=== PATIENT | female | born 1930 | race Caucasian/White ===

== ENCOUNTER 2017-06-15 10:52 | Inpatient (IN) | payer OTHER ==
--- NOTE | 2017-06-15 11:06 | PDOC ---
History of Present Illness - General History Source: Patient Exam Limitations: No Limitations - History of Present Illness Initial Comments: 06/15/17 11:39 The patient is an 87 year old female from [facility] with a significant PMH of CHF, AFIB (on Eliquis), and muscle weakness who presents to the emergency department with 'cold-like symptoms' beginning approximately 3 days ago. The patient reports an occasional cough and feeling nauseous over the past 3 days, but reports being slightly less nauseous at presentation. The patient presents to the ED for evaluation of fever, as per the triage note. The patient denies chest pain, shortness of breath, headache and dizziness. Denies fever, chills, vomit, diarrhea and constipation. Denies dysuria, frequency, urgency and hematuria. Allergies: Cephalosporins, Erythromycin lactobionate, Penicillins, Septrin Past surgical history: None reported. Social history: No reported cigarette, alcohol, or drug use. PCP: Dr. Kisha Pierre <Usman Tinsley - Last Filed: 06/15/17 11:57> <Karen Mcintosh - Last Filed: 06/16/17 16:17> - General Stated Complaint: ELEVATED TEMP. Time Seen by Provider: 06/15/17 11:05 Past History <Usman Tinsley - Last Filed: 06/15/17 11:57> - Suicide/Smoking/Psychosocial Hx Smoking History: Unknown if ever smoked Have you smoked in the past 12 months: No Hx Alcohol Use: No Drug/Substance Use Hx: No <Karen Mcintosh - Last Filed: 06/16/17 16:17> - Past Medical History Allergies/Adverse Reactions: Allergies Allergy/AdvReac Type Severity Reaction Status Date / Time Cephalosporins Allergy Verified 06/15/17 11:20 erythromycin lactobionate Allergy Verified 06/15/17 11:20 [From Erythrocin] Penicillins Allergy Verified 06/15/17 11:20 shellfish derived Allergy Verified 06/15/17 11:20 Home Medications: Ambulatory Orders Apixaban [Eliquis] 5 mg PO BID 04/23/16 Cholecalciferol (Vitamin D3) [D3-50] 50,000 unit PO MONTHLY 04/23/16 Digoxin [Lanoxin -] 0.125 mg PO DAILY 04/23/16 Furosemide [Lasix -] 80 mg PO ASDIR 04/23/16 Metoprolol Tartrate 25 mg PO BID 04/23/16 Primidone [Mysoline] 250 mg PO DAILY 04/23/16 Spironolactone 25 mg PO DAILY 04/23/16 Valsartan 40 mg PO DAILY 04/23/16 Acetaminophen [Tylenol Extra Strength] 1,000 mg PO QID PRN 06/15/17 Furosemide [Lasix] 40 mg PO ASDIR 06/15/17 Melatonin 5 mg PO HS 06/15/17 Nystatin/Triamcin [Nystatin-Triamcinolone Cream] 0 gm TP TID PRN 06/15/17 Review of Systems - Review of Systems Able to Perform ROS?: Yes Comments:: 06/15/17 11:39 GENERAL/CONSTITUTIONAL: No fever or chills. No weakness. HEAD, EYES, EARS, NOSE AND THROAT: No change in vision. No ear pain or discharge. No sore throat. CARDIOVASCULAR: No chest pain or shortness of breath. RESPIRATORY: (+) Occasional cough. No wheezing, or hemoptysis. GASTROINTESTINAL: (+) Nausea. No vomiting, diarrhea or constipation. GENITOURINARY: No dysuria, frequency, or change in urination. MUSCULOSKELETAL: No joint or muscle swelling or pain. No neck or back pain. SKIN: No rash NEUROLOGIC: No headache, vertigo, loss of consciousness, or change in strength/ sensation. ENDOCRINE: No increased thirst. No abnormal weight change. HEMATOLOGIC/LYMPHATIC: No anemia, easy bleeding, or history of blood clots. ALLERGIC/IMMUNOLOGIC: No hives or skin allergy. <Usman Tinsley - Last Filed: 06/15/17 11:57> *Physical Exam - Vital Signs Last Vital Signs Temp Pulse Resp BP Pulse Ox 98.7 F 80 18 106/51 95 06/15/17 10:55 06/15/17 10:55 06/15/17 10:55 06/15/17 10:55 06/15/17 10:55 <Usman Tinsley - Last Filed: 06/15/17 11:57> - Physical Exam Comments: GENERAL: Awake, alert, and fully oriented, in no acute distress HEAD: No signs of trauma EYES: PERRLA, EOMI, sclera anicteric, conjunctiva clear ENT: Auricles normal inspection, hearing grossly normal, nares patent, oropharynx clear without exudates. Dry mucosa NECK: Normal ROM, supple, no lymphadenopathy, JVD, or masses LUNGS: Breath sounds equal, clear to auscultation bilaterally. No wheezes, and no crackles HEART: Regular rate and rhythm, normal S1 and S2, no murmurs, rubs or gallops ABDOMEN: Soft, nontender, normoactive bowel sounds. No guarding, no rebound. No masses EXTREMITIES: Normal range of motion, no edema. No clubbing or cyanosis. No cords, erythema, or tenderness NEUROLOGICAL: Cranial nerves II through XII grossly intact. Normal speech, normal gait SKIN: Warm, Dry, normal turgor, no rashes or lesions noted. <Karen Mcintosh - Last Filed: 06/16/17 16:17> ED Treatment Course - LABORATORY CBC & Chemistry Diagram: 06/16/17 06:10 06/16/17 06:10 <Karen Mcintosh - Last Filed: 06/16/17 16:17> Medical Decision Making - Medical Decision Making PT noted to have fever and tachycardia. Flu swab was negative, however, she was found to have UTI. Will admit for IV abx. <Karen Mcintosh - Last Filed: 06/16/17 16:17> *DC/Admit/Observation/Transfer - Attestations Scribe Attestion: 06/15/17 11:48 Documentation prepared by Usman Tinsley, acting as senior medical writer for Karen Mcintosh MD. <Usman Tinsley - Last Filed: 06/15/17 11:57> - Discharge Dispostion Admit: Yes <Karen Mcintosh - Last Filed: 06/16/17 16:17> Diagnosis at time of Disposition: Sepsis due to urinary tract infection UTI (urinary tract infection) Qualifiers: Urinary tract infection type: site unspecified Hematuria presence: without hematuria Qualified Code(s): N39.0 - Urinary tract infection, site not specified - Discharge Dispostion Condition at time of disposition: Stable
[2017-06-15 11:25] VITALS: BMI 26.4
[2017-06-15 12:20] LABS: MCH 31.9 pg (25.7-33.7); MEAN CELL VOLUME 96.5 fl (80-96); MEAN PLT VOLUME 9.2 fl (7.5-11.1); PLATELET COUNT 216 K/MM3 (134-434); RDW 13.4 % (11.6-15.6); WHITE BLOOD COUNT 21.7 K/mm3 (4.0-10.0)
[2017-06-15 12:45] LABS: ALBUMIN 2.9 g/dl (3.4-5.0); ANION GAP 8 (8-16); BILIRUBIN,TOTAL 0.9 mg/dL (0.2-1.0); CALCIUM 8.1 mg/dL (8.5-10.1); CO2 28 mmol/L (21-32); CREATININE 1.1 mg/dL (0.55-1.02); GLUCOSE,RANDOM 191 mg/dL (74-106); SGOT/AST 22 U/L (15-37); SGPT/ALT 35 U/L (12-78)
[2017-06-15 12:48] LABS: TOTAL CELLS COUNTED 100
[2017-06-15 12:49] LABS: PLATELET COMMENTS SLT PLT CLUMPING; PLATELET ESTIMATE ADEQUATE
[2017-06-15 12:57] LABS: ALK PHOS 88 U/L (45-117)
[2017-06-15 13:58] LABS: URINE APPEARANCE TURBID; URINE BILIRUBIN NEGATIVE (NEGATIVE); URINE BLOOD 3+ (NEGATIVE); URINE COLOR AMBER; URINE GLUCOSE (UA) NEGATIVE (NEGATIVE); URINE KETONE NEGATIVE (NEGATIVE); URINE NITRITE NEGATIVE (NEGATIVE); URINE UROBILINOGEN NEGATIVE mg/dL (0.2-1.0)
[2017-06-15 14:01] LABS: URINE PROTEIN 2+ (NEGATIVE)
[2017-06-15 14:02] LABS: URINE BACTERIA MANY /hpf (NONE SEEN); URINE HYALINE CAST 25 /lpf; URINE RBC 393 /hpf (0-3); URINE WBC 526 /hpf (3-5); YEAST MODERATE
[2017-06-15] MEDS ORDERED: LEVOFLOXACIN 750 MG IVPB 750 MG/150 ML BAG IVPB ONE ×2 (14:23→15:21)
[2017-06-15] MEDS ORDERED: ACETAMINOPHEN 500 MG TABLET (FP) PO PRN (15:28)
[2017-06-15] MEDS ORDERED: ACETAMINOPHEN 325 MG TABLET (FP) ONE (16:37)
[2017-06-15] MEDS: ACETAMINOPHEN 500 MG TABLET (FP) PO PRN (16:40)
[2017-06-15 19:38] LABS: URINE LEUK ESTERASE 1+ (NEGATIVE)
[2017-06-15] MEDS: METOPROLOL TARTRATE 50 MG TABLET (FP) PO SCH (22:23)
[2017-06-15] MEDS: APIXABAN 5 MG TABLET PO SCH (22:23)
[2017-06-15] MEDS: MELATONIN 5 MG TABLETS PO SCH (23:17)
[2017-06-16] MEDS: ACETAMINOPHEN 500 MG TABLET (FP) PO PRN ×2 (06:46→21:27)
--- NOTE | 2017-06-16 07:17 | HP ---
CHIEF COMPLAINT: Cold Symptoms, PCP: HISTORY OF PRESENT ILLNESS: This is a 87 y/o woman with a past medical history of CHF, Afib (on Eliquis), Muscle Weakness, Seizures. Who presents to the ED from [facility] on [address] with cold symptoms x 3 days. Patient reports having fever, chills, and "feeling foggy " 2 days ago. Patient also reports having fatigue and a productive cough with yellow phlegm. Patient denies SWIFT, SOB, CP, AP, N/V/D, constipation, dysuria. ER course was notable for: (1) Sepsis Criteria met: T Max 101.8, WBC 21.7, R-22, BUN 22 (2) UA: +3 leukocyte esterase, 526 WBC, yeast moderate (3) Recent Travel: None PAST MEDICAL HISTORY: See HPI PAST SURGICAL HISTORY: Social History: Smoking: Never Alcohol: None Drugs: None Resides in a assisted Family History: Non-contributory Allergies Cephalosporins Allergy (Verified 06/15/17 11:20) erythromycin lactobionate [From Erythrocin] Allergy (Verified 06/15/17 11:20) Penicillins Allergy (Verified 06/15/17 11:20) shellfish derived Allergy (Verified 06/15/17 11:20) HOME MEDICATIONS: Home Medications Medication Instructions Recorded Apixaban [Eliquis] 5 mg PO BID 04/23/16 Cholecalciferol (Vitamin D3) 50,000 unit PO MONTHLY 04/23/16 [D3-50] Digoxin [Lanoxin -] 0.125 mg PO DAILY 04/23/16 Furosemide [Lasix -] 80 mg PO ASDIR 04/23/16 Metoprolol Tartrate 25 mg PO BID 04/23/16 Primidone [Mysoline] 250 mg PO DAILY 04/23/16 Spironolactone 25 mg PO DAILY 04/23/16 Valsartan 40 mg PO DAILY 04/23/16 Acetaminophen [Tylenol Extra 1,000 mg PO QID PRN 06/15/17 Strength] Furosemide [Lasix] 40 mg PO ASDIR 06/15/17 Melatonin 5 mg PO HS 06/15/17 Nystatin/Triamcin 0 gm TP TID PRN 06/15/17 [Nystatin-Triamcinolone Cream] REVIEW OF SYSTEMS CONSTITUTIONAL: fever, chills, malaise Absent: diaphoresis, generalized weakness, loss of appetite, weight change HEENT: Absent: rhinorrhea, nasal congestion, throat pain, throat swelling, difficulty swallowing, mouth swelling, ear pain, eye pain, visual changes CARDIOVASCULAR: Absent: chest pain, syncope, palpitations, irregular heart rate, lightheadedness , peripheral edema RESPIRATORY: cough Absent: shortness of breath, dyspnea with exertion, orthopnea, wheezing, stridor , hemoptysis GASTROINTESTINAL: Absent: abdominal pain, abdominal distension, nausea, vomiting, diarrhea, constipation, melena, hematochezia GENITOURINARY: Absent: dysuria, frequency, urgency, hesitancy, hematuria, flank pain, genital pain MUSCULOSKELETAL: Absent: myalgia, arthralgia, joint swelling, back pain, neck pain SKIN: Absent: rash, itching, pallor HEMATOLOGIC/IMMUNOLOGIC: Absent: easy bleeding, easy bruising, lymphadenopathy, frequent infections ENDOCRINE: Absent: unexplained weight gain, unexplained weight loss, heat intolerance, cold intolerance NEUROLOGIC: Absent: headache, focal weakness or paresthesias, dizziness, unsteady gait, seizure, mental status changes, bladder or bowel incontinence PSYCHIATRIC: Absent: anxiety, depression, suicidal or homicidal ideation, hallucinations. PHYSICAL EXAMINATION Vital Signs - 24 hr 06/15/17 06/15/17 06/15/17 10:55 14:55 16:35 Temperature 98.7 F 101.8 F H Pulse Rate 80 Pulse Rate [ 86 104 H Apical] Respiratory 18 Rate Blood Pressure 106/51 Blood Pressure 131/44 118/48 [Left Arm] O2 Sat by Pulse 95 95 96 Oximetry (%) 06/15/17 06/15/17 06/16/17 17:47 21:00 02:00 Temperature 101.2 F H 99.3 F 98.1 F Pulse Rate 128 H 120 H Pulse Rate [ 96 H Apical] Respiratory 22 22 Rate Blood Pressure 109/56 116/46 Blood Pressure 109/45 [Left Arm] O2 Sat by Pulse 97 96 Oximetry (%) 06/16/17 06:00 Temperature 101.8 F H Pulse Rate 103 H Pulse Rate [ Apical] Respiratory 22 Rate Blood Pressure 106/67 Blood Pressure [Left Arm] O2 Sat by Pulse Oximetry (%) GENERAL: Awake, alert, and fully oriented, in no acute distress. HEAD: Normal with no signs of trauma. EYES: Pupils equal, round and reactive to light, extraocular movements intact, sclera anicteric, conjunctiva clear. No lid lag. EARS, NOSE, THROAT: Ears normal, nares patent, oropharynx clear without exudates. Dry mucous membranes. NECK: Normal range of motion, supple without lymphadenopathy, JVD, or masses. LUNGS: Breath sounds equal, clear to auscultation bilaterally. No wheezes, and no crackles. No accessory muscle use. HEART: Irregular rate and rhythm, normal S1 and S2 systolic grade 2/6 murmur, No rub or gallop. ABDOMEN: Soft, nontender, not distended, normoactive bowel sounds, no guarding, no rebound, no masses. No hepatomegaly or splenomegaly. MUSCULOSKELETAL: Normal range of motion at all joints. No bony deformities or tenderness. No CVA tenderness. UPPER EXTREMITIES: 2+ pulses, warm, well-perfused. No cyanosis. No clubbing. No peripheral edema. LOWER EXTREMITIES: 2+ pulses, warm, well-perfused. No calf tenderness. No peripheral edema. NEUROLOGICAL: Cranial nerves II-XII intact. Normal speech. Gait not observed. PSYCHIATRIC: Cooperative. Good eye contact. Appropriate mood and affect. SKIN: Warm, dry, normal turgor, no rashes or lesions noted, normal capillary refill. Laboratory Results - last 24 hr 06/15/17 06/15/17 06/15/17 12:00 12:00 12:00 WBC 21.7 H RBC 3.35 L Hgb 10.7 Hct 32.3 L MCV 96.5 H MCH 31.9 MCHC 33.0 RDW 13.4 Plt Count 216 MPV 9.2 Total Counted 100 Neutrophils % No Result Required. Neutrophils % (Manual) 77.0 Band Neutrophils % 15.0 Lymphocytes % No Result Required. Lymphocytes % (Manual) 4.0 L Monocytes % (Manual) 3 L Platelet Estimate Adequate Platelet Comment Slt plt clumping Sodium 134 L Potassium 3.8 Chloride 98 Carbon Dioxide 28 Anion Gap 8 BUN 29 H Creatinine 1.1 H Creat Clearance w eGFR 46.88 Random Glucose 191 H Lactic Acid 1.7 Calcium 8.1 L Total Bilirubin 0.9 AST 22 ALT 35 Alkaline Phosphatase 88 Total Protein 7.0 Albumin 2.9 L Urine Color Urine Appearance Urine pH Ur Specific [place] Urine Protein Urine Glucose (UA) Urine Ketones Urine Blood Urine Nitrite Urine Bilirubin Urine Urobilinogen Ur Leukocyte Esterase Urine WBC (Auto) Urine RBC (Auto) Ur Epithelial Cells Urine Bacteria Hyaline Casts Urine Yeast Digoxin 1.0839 06/15/17 13:30 WBC RBC Hgb Hct MCV MCH MCHC RDW Plt Count MPV Total Counted Neutrophils % Neutrophils % (Manual) Band Neutrophils % Lymphocytes % Lymphocytes % (Manual) Monocytes % (Manual) Platelet Estimate Platelet Comment Sodium Potassium Chloride Carbon Dioxide Anion Gap BUN Creatinine Creat Clearance w eGFR Random Glucose Lactic Acid Calcium Total Bilirubin AST ALT Alkaline Phosphatase Total Protein Albumin Urine Color [place] Urine Appearance Turbid Urine pH 7.0 Ur Specific [place] 1.016 Urine Protein 2+ H Urine Glucose (UA) Negative Urine Ketones Negative Urine Blood 3+ H Urine Nitrite Negative Urine Bilirubin Negative Urine Urobilinogen Negative Ur Leukocyte Esterase 1+ H Urine WBC (Auto) 526 Urine RBC (Auto) 393 Ur Epithelial Cells Rare Urine Bacteria Many Hyaline Casts 25 Urine Yeast Moderate Digoxin ASSESSMENT/PLAN: This is a 87 y/o woman with a PMHx of: CHF, Afib (on Eliquis), Muscle Weakness, Seizures, CACHIL DEHE. Admitted to M/S Sepsis secondary to UTI for further evaluation of their emergent condition. Plan: FEN - PO fluids - Replete lytes prn - Low Na Diet Code Status: DNR Dispo: Requires Inpatient Care Problem List - Problem (1) Sepsis due to urinary tract infection Code(s): A41.9 - SEPSIS, UNSPECIFIED ORGANISM; N39.0 - URINARY TRACT INFECTION, SITE NOT SPECIFIED (2) UTI (urinary tract infection) Assessment/Plan: - UA- +1 leukocytes esterase, 526 WBC - Urine Culture-pending - Levaquin given in ED - Will continue Levaquin renal dosing - Appreciate ID Consult - Monitor vitals - Monitor CBC Code(s): N39.0 - URINARY TRACT INFECTION, SITE NOT SPECIFIED Qualifiers: Urinary tract infection type: site unspecified Hematuria presence: without hematuria Qualified Code(s): N39.0 - Urinary tract infection, site not specified (3) A-fib Assessment/Plan: - Rate Controlled - EKG- reviewed - [id number] Score 4 - Continue Eliquis Code(s): I48.91 - UNSPECIFIED ATRIAL FIBRILLATION (4) CHF (congestive heart failure) Assessment/Plan: - No Active Exacerbation - Continue home meds Code(s): I50.9 - HEART FAILURE, UNSPECIFIED (5) DVT prophylaxis Assessment/Plan: - OOB - SCDs - Eliquis Code(s): UHT7470 - Visit type - Emergency Visit Emergency Visit: Yes ED Registration Date: 06/15/17 Care time: The patient presented to the Emergency Department on the above date and was hospitalized for further evaluation of their emergent condition. - New Patient This patient is new to me today: Yes Date on this admission: 06/15/17 - Critical Care Critical Care patient: No
[2017-06-16 07:40] LABS: BASOPHIL 0.1 % (0-2.0); EOSINOPHIL 0.1 % (0-4.5); MCH 32.3 pg (25.7-33.7); MCHC 33.4 g/dl (32.0-36.0); MEAN CELL VOLUME 96.6 fl (80-96); MEAN PLT VOLUME 9.9 fl (7.5-11.1); NEUTROPHILS 92.5 % (42.8-82.8); PLATELET COUNT 193 K/MM3 (134-434); RDW 13.6 % (11.6-15.6); WHITE BLOOD COUNT 18.7 K/mm3 (4.0-10.0)
[2017-06-16 08:53] LABS: ALBUMIN 2.7 g/dl (3.4-5.0); ALK PHOS 83 U/L (45-117); ANION GAP 11 (8-16); CO2 27 mmol/L (21-32); CREATININE 1.2 mg/dL (0.55-1.02); GLUCOSE,RANDOM 161 mg/dL (74-106); MAGNESIUM 2.3 mg/dL (1.8-2.4); PHOSPHOROUS 3.5 mg/dL (2.5-4.9); SGOT/AST 14 U/L (15-37); SGPT/ALT 26 U/L (12-78); TOT PROT 6.5 g/dl (6.4-8.2)
[2017-06-16] MEDS ORDERED: LEVOFLOXACIN 250 MG IVPB 250 MG/50 ML MG IVPB SCH (10:00)
[2017-06-16] MEDS: APIXABAN 5 MG TABLET PO SCH ×2 (11:40→21:25)
[2017-06-16] MEDS: VALSARTAN 40 MG TABLET (FP) PO SCH (11:40)
[2017-06-16] MEDS: DIGOXIN 0.125 MG TABLET (FP) PO SCH (11:40)
[2017-06-16] MEDS: METOPROLOL TARTRATE 50 MG TABLET (FP) PO SCH ×2 (11:40→21:25)
[2017-06-16] MEDS: SPIRONOLACTONE 25 MG TABLET (FP) PO SCH (11:41)
[2017-06-16] MEDS: FUROSEMIDE 40 MG TABLET (FP) PO SCH (11:41)
--- NOTE | 2017-06-16 13:31 | CON.ID ---
Consult Reason for Consultation:: sepsis - History of Present Illness History of Present Illness: Pt seen and examine. Notes/lab and xray results noted. Pt is an 87 y.o. [place] resident who presents with complaints of fatigue/not feeling as herself for the past few day. State that she has had a cough without phlegm production and no shortness of breath or chest pain. Denies sore throat, nasal congestion or rhinorrhea. Denies having chills or noticed any fever but c/o urinary frequency without dysuria. In the ER she was noted to have a fever of 101.8F and a significantly elevated wbc with mild renal impairment. She denies any other specific complaints. 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: Alzheimer's, CVA, Dementia, Migraine, Multiple Sclerosis, Peripheral Neuropathy, Parkinson's, Seizure, Syncope, TIA, Vertigo, Other Cardio/Vascular: Yes: AFIB, CHF Pulmonary: No: Asthma, Bronchitis, Cancer, COPD, O2 Dependent, Pneumonia, Previously Intubated, Pulmonary Embolus, Pulmonary Fibrosis, Sleep Apnea, Other Gastrointestinal: No: Ascites, Cancer, Constipation, Crohn's Disease, Diverticulitis, Diverticulosis, Esophageal Varices, Gastritis, GERD, GI Bleed, Hemorrhoids, Hiatal Hernia, Inflamatory Bowel Disease, Irritable Bowel Disease, Pancreatitis, Peptic Ulcer Disease, Ulcerative Colitis, Other Hepatobiliary: No: Cirrhosis, Cholelithiasis, Cholecystitis, Choledocholithiasis , Hepatitis A, Hepatitis B, Hepatitis C, Other Renal/: No: Renal Failure, Renal Inusuff, BPH, Cancer, Hematuria, Hemodialysis , Neurogenic Bladder, Renal Calculi, UTI, Other Reproductive: No: Ectopic , Endometriosis, Fibroids, PID, Polycystic Ovary Syndrome, Postmenopausal, Other Heme/Onc: No: Anemia, B12 Deficiency, Bleeding Disorder, Cancer, Current Chemotherapy, Current Radiation Therapy, Hemochromatosis, Hypercoaguable State, Myeloproliferative Synd, Sickle Cell Disease, Sickle Cell Trait, Thrombocytopenia, Other Psych: No: Addictions, Anxiety, Bipolar, Depression, Panic, Psychosis, Schizophrenia, Other Musculoskeletal: No: Bursitis, Chronic low back pain, Hemiparesis, Hemiplegia, Osteoarthritis, Paraplegia, Other Rheumatology: No: Fibromyalgia, Gout, Lupus, Rheumatoid Arthritis, Sarcoidosis, Vasculitis, Other ENT: No: Allergic Rhinitis, Sinusitis, Other Endocrine: No: [place]'s Disease, [place]'s Disease, Diabetes Insipidus, Diabetes Mellitus, Hyperparathyroidism, Hyperthyroidism, Hypothyroidism, Osteopenia, SIADH, Other - Past Surgical History Past Surgical History: Yes: None - Alcohol/Substance Use Hx Alcohol Use: No - Smoking History Smoking history: Former smoker Have you smoked in the past 12 months: No If you are a former smoker, when did you quit?: smoked in high school and college, quit decades ago - Social History Usual Living Arrangement: Senior Living Occupation: [employer] History of Recent Travel: No Home Medications - Allergies Allergies/Adverse Reactions: Allergies Allergy/AdvReac Type Severity Reaction Status Date / Time Cephalosporins Allergy Verified 06/15/17 11:20 erythromycin lactobionate Allergy Verified 06/15/17 11:20 [From Erythrocin] Penicillins Allergy Verified 06/15/17 11:20 shellfish derived Allergy Verified 06/15/17 11:20 - Home Medications Home Medications: Ambulatory Orders Apixaban [Eliquis] 5 mg PO BID 04/23/16 Cholecalciferol (Vitamin D3) [D3-50] 50,000 unit PO MONTHLY 04/23/16 Digoxin [Lanoxin -] 0.125 mg PO DAILY 04/23/16 Furosemide [Lasix -] 80 mg PO ASDIR 04/23/16 Metoprolol Tartrate 25 mg PO BID 04/23/16 Primidone [Mysoline] 250 mg PO DAILY 04/23/16 Spironolactone 25 mg PO DAILY 04/23/16 Valsartan 40 mg PO DAILY 04/23/16 Acetaminophen [Tylenol Extra Strength] 1,000 mg PO QID PRN 06/15/17 Furosemide [Lasix] 40 mg PO ASDIR 06/15/17 Melatonin 5 mg PO HS 06/15/17 Nystatin/Triamcin [Nystatin-Triamcinolone Cream] 0 gm TP TID PRN 06/15/17 Family Disease History - Family Disease History Family History: Unable to Obtain Review of Systems - Review of Systems Constitutional: reports: Lethargy Eyes: reports: No Symptoms HENT: reports: Hearing Loss (mildly hearing impaired, wears hearing aid usually) Neck: reports: No Symptoms Cardiovascular: reports: No Symptoms Respiratory: reports: Cough (occasional dry cough, but not noted during examination) Gastrointestinal: reports: No Symptoms Genitourinary: reports: Frequency Musculoskeletal: reports: Muscle Pain (mild) Integumentary: reports: No Symptoms Neurological: reports: No Symptoms Endocrine: reports: No Symptoms Hematology/Lymphatic: reports: No Symptoms Psychiatric: reports: No Symptoms Physical Exam Vital Signs: Vital Signs Temperature 98 F 06/16/17 10:00 Pulse Rate 106 H 06/16/17 11:40 Respiratory Rate 20 06/16/17 10:00 Blood Pressure 120/52 06/16/17 10:00 O2 Sat by Pulse Oximetry (%) 96 06/15/17 21:00 Constitutional: Yes: No Distress, Calm Eyes: Yes: WNL HENT: Yes: Atraumatic Neck: Yes: Supple Cardiovascular: Yes: Pulse Irregular Respiratory: Yes: Other (fine crackles at lung bases) Gastrointestinal: Yes: Normal Bowel Sounds, Soft Renal/: Yes: CVA Tenderness - Left, Other (no suprapubic pain) Musculoskeletal: Yes: WNL Extremities: Yes: WNL Edema: No Integumentary: Yes: WNL Neurological: Yes: Alert, Oriented Psychiatric: Yes: Alert Labs: CBC, BMP 06/16/17 06:10 06/16/17 06:10 Microbiology 06/15/17 13:30 Urine - Urine Clean Catch Urine Culture - Preliminary Non Lactose Fermenting Gnb 06/15/17 12:00 Blood - Peripheral Venous Blood Culture - Preliminary Non Lactose Fermenting Gnb 06/15/17 12:00 Blood - Peripheral Venous Blood Culture - Preliminary Pending Organism 06/15/17 12:00 Nasopharyngeal Swab Influenza Types A,B Antigen ([place]) - Final 06/15/17 12:00 Nasopharyngeal Swab - Final Imaging - Results X-ray: Report Reviewed (nonspecific "coarse changes", no acute infiltrates) Problem List - Problems (1) A-fib Code(s): I48.91 - UNSPECIFIED ATRIAL FIBRILLATION (2) CHF (congestive heart failure) Code(s): I50.9 - HEART FAILURE, UNSPECIFIED (3) Sepsis due to urinary tract infection Code(s): A41.9 - SEPSIS, UNSPECIFIED ORGANISM; N39.0 - URINARY TRACT INFECTION, SITE NOT SPECIFIED Assessment/Plan Gram negative UTI/Bacteremia Lt CVA tenderness r/o pyelonephritis -- d/c Levaquin -- start Aztreonam IV -- recommend renal sonogram -- monitor wbc, renal function -- f/u blood and urine culture isolates continue monitor vitals will f/u
[2017-06-16] MEDS: PRIMIDONE 250 MG TABLET PO SCH (14:18)
--- NOTE | 2017-06-16 16:15 | PN ---
Physical Exam: SUBJECTIVE: Patient seen and examined. OBJECTIVE: Vital Signs Period Temp Pulse Resp BP Sys/Modi Pulse Ox Last 24 Hr 98 F-101.8 F 84-128 20-22 104-120/45-67 96-97 GENERAL: The patient is awake, alert, and fully oriented, in no acute distress. ENT: Dry mucous membranes. LUNGS: Breath sounds equal, clear to auscultation bilaterally, no wheezes, no crackles, no accessory muscle use. HEART: Irregular rate and rhythm, S1, S2 without murmur, rub or gallop. ABDOMEN: Soft, tender in suprapubic area, nondistended, normoactive bowel sounds , no guarding, no rebound, no hepatosplenomegaly, no masses. EXTREMITIES: 2+ pulses, warm, well-perfused, no edema. NEUROLOGICAL: Cranial nerves II through XII grossly intact. Normal speech, gait not observed. Laboratory Results - last 24 hr 06/15/17 06/16/17 06/16/17 13:30 06:10 06:10 WBC 18.7 H RBC 3.27 L Hgb 10.6 L Hct 31.6 L MCV 96.6 H MCH 32.3 MCHC 33.4 RDW 13.6 Plt Count 193 MPV 9.9 Neutrophils % 92.5 H Lymphocytes % 3.6 L Monocytes % 3.7 L Eosinophils % 0.1 Basophils % 0.1 Sodium 132 L Potassium 3.7 Chloride 94 L Carbon Dioxide 27 Anion Gap 11 BUN 30 H Creatinine 1.2 H Creat Clearance w eGFR 42.40 Random Glucose 161 H Calcium 8.0 L Phosphorus 3.5 Magnesium 2.3 Total Bilirubin 1.0 AST 14 L D ALT 26 D Alkaline Phosphatase 83 Total Protein 6.5 Albumin 2.7 L Ur Leukocyte Esterase 1+ H Active Medications Generic Name Dose Route Start Last Admin Trade Name Freq PRN Reason Stop Dose Admin Acetaminophen 1,000 mg 06/15/17 15:53 06/16/17 06:46 Tylenol - PO 1,000 mg Q6H PRN Administration PAIN Apixaban 5 mg 06/15/17 22:00 06/16/17 11:40 Eliquis - PO 5 mg BID MIGUEL Administration Digoxin 0.125 mg 06/16/17 10:00 06/16/17 11:40 Lanoxin - PO 0.125 mg DAILY MIGUEL Administration Ergocalciferol 50,000 unit 06/23/17 15:30 Drisdol - PO Q30D MIGUEL Furosemide 40 mg 06/16/17 10:00 06/16/17 11:41 Lasix - PO 40 mg DAILY MIGUEL Administration Aztreonam 1 gm in 10 mls @ 120 mls/hr 06/16/17 22:00 Azactam (Restricted To Id) - IVPUSH BID MIGUEL Melatonin 5 mg 06/15/17 22:00 06/15/17 23:17 Melatonin PO 5 mg HS MIGUEL Administration Metoprolol Tartrate 25 mg 06/15/17 22:00 06/16/17 11:40 Lopressor - PO 25 mg BID MIGUEL Administration Primidone 250 mg 06/16/17 10:00 06/16/17 14:18 Mysoline - PO 250 mg DAILY MIGUEL Administration Spironolactone 25 mg 06/16/17 10:00 06/16/17 11:41 Aldactone - PO 25 mg DAILY MIGUEL Administration Valsartan 40 mg 06/16/17 10:00 06/16/17 11:40 Diovan - PO 40 mg DAILY MIGUEL Administration Microbiology 06/15/17 13:30 Urine - Urine Clean Catch Urine Culture - Preliminary Non Lactose Fermenting Gnb 06/15/17 12:00 Blood - Peripheral Venous Blood Culture - Preliminary Non Lactose Fermenting Gnb 06/15/17 12:00 Blood - Peripheral Venous Blood Culture - Preliminary Pending Organism 06/15/17 12:00 Nasopharyngeal Swab Influenza Types A,B Antigen ([facility]) - Final 06/15/17 12:00 Nasopharyngeal Swab - Final ASSESSMENT/PLAN: A: 87yo woman with PMH CHF, afib presented to ED with sepsis 2/2 UTI P: Sepsis/UTI - SIRS with WBC, T-101, HR-106 - UA positive for UTI - Lactate 1.7 - Azactam started per ID (06/16- ) - trend WBC - prelim urine cx- as above - prelim blood cx- as above - strict I&O's - Appreciate ID Afib - metoprolol - Eliquis - digoxin CHF - Lasix - Digoxin - Aldactone - Diovan - daily weights - strict I&O's F/E/N - Low Na diet - monitor electrolytes PPX - Eliquis Dispo- Requires Inpatient treatment for IV abx. Visit type - Emergency Visit Emergency Visit: Yes ED Registration Date: 06/15/17 Care time: The patient presented to the Emergency Department on the above date and was hospitalized for further evaluation of their emergent condition. - New Patient This patient is new to me today: Yes Date on this admission: 06/16/17 - Critical Care Critical Care patient: No
[2017-06-16] MEDS ORDERED: PT OWN MED DRAWER 7, Y5N ONE (21:07)
[2017-06-16] MEDS: AZTREONAM 1 GRAM SYRINGE 1 GM/10 ML DISP.SYRIN IVPUSH SCH (21:24)
[2017-06-16] MEDS: MELATONIN 5 MG TABLETS PO SCH (21:27)
[2017-06-16] MEDS ORDERED: WATER IV SCH (22:00)
[2017-06-16] MEDS ORDERED: AZTREONAM IV SCH (22:00)
[2017-06-16] MEDS ORDERED: DEXTROSE 5% IV SCH (22:00)
[2017-06-17 07:42] LABS: BASOPHIL 0.2 % (0-2.0); EOSINOPHIL 1.6 % (0-4.5); MCH 32.4 pg (25.7-33.7); MCHC 33.5 g/dl (32.0-36.0); MEAN CELL VOLUME 96.7 fl (80-96); NEUTROPHILS 86.9 % (42.8-82.8); PLATELET COUNT 177 K/MM3 (134-434); RDW 13.2 % (11.6-15.6)
[2017-06-17 08:04] LABS: ANION GAP 10 (8-16); CALCIUM 8.3 mg/dL (8.5-10.1); CO2 30 mmol/L (21-32); GLUCOSE,RANDOM 126 mg/dL (74-106)
[2017-06-17] MEDS ORDERED: PT OWN MED DRAWER 7, Y5N ONE ×2 (10:37→21:29)
[2017-06-17] MEDS: VALSARTAN 40 MG TABLET (FP) PO SCH (10:48)
[2017-06-17] MEDS: PRIMIDONE 250 MG TABLET PO SCH (10:48)
--- NOTE | 2017-06-17 10:48 | PN ---
Physical Exam: SUBJECTIVE: Patient seen and examined at the bedside. States she still feels very weak. Denies chest pain or abdominal pain. OBJECTIVE: shelter monitor shows controlled afib 87 Vital Signs Period Temp Pulse Resp BP Sys/Modi Pulse Ox Last 24 Hr 97.5 F-100.6 F 84-110 18-20 104-132/49-59 97 GENERAL: The patient is awake, alert, and fully oriented, appears profoundly weak HEAD: Normal with no signs of trauma. EYES: PERRL, extraocular movements intact, sclera anicteric, conjunctiva clear. No ptosis. ENT: Ears normal, nares patent, oropharynx clear without exudates, moist mucous membranes. NECK: Trachea midline, full range of motion, supple. LUNGS: Breath sounds equal, clear to auscultation bilaterally HEART: Irregular heart rate, ekg monitor shows controlled afib 86 ABDOMEN: Mildy distended, no pain on light palpation of abdomen, + bowel sounds , tender suprapubic region EXTREMITIES: 2+ pulses, warm, well-perfused, no edema. NEUROLOGICAL: Normal speech, gait not observed. PSYCH: Normal mood, normal affect. SKIN: Warm, dry, normal turgor, no rashes or lesions noted Laboratory Results - last 24 hr 06/17/17 06/17/17 05:35 05:35 WBC 15.0 H RBC 3.28 L Hgb 10.6 L Hct 31.8 L MCV 96.7 H MCH 32.4 MCHC 33.5 RDW 13.2 Plt Count 177 MPV 10.0 Neutrophils % 86.9 H Lymphocytes % 3.8 L Monocytes % 7.5 D Eosinophils % 1.6 D Basophils % 0.2 Sodium 133 L Potassium 3.7 Chloride 93 L Carbon Dioxide 30 Anion Gap 10 BUN 31 H Creatinine 1.0 Random Glucose 126 H D Calcium 8.3 L Active Medications Generic Name Dose Route Start Last Admin Trade Name Freq PRN Reason Stop Dose Admin Acetaminophen 1,000 mg 06/15/17 15:53 06/16/17 21:27 Tylenol - PO 1,000 mg Q6H PRN Administration PAIN Apixaban 5 mg 06/15/17 22:00 06/16/17 21:25 Eliquis - PO 5 mg BID MIGUEL Administration Digoxin 0.125 mg 06/16/17 10:00 06/16/17 11:40 Lanoxin - PO 0.125 mg DAILY MIGUEL Administration Ergocalciferol 50,000 unit 06/23/17 15:30 Drisdol - PO Q30D MIGUEL Furosemide 40 mg 06/16/17 10:00 06/16/17 11:41 Lasix - PO 40 mg DAILY M[facility]UEL Administration Aztreonam 1 gm in 10 mls @ 120 mls/hr 06/16/17 22:00 06/16/17 21:24 Azactam (Restricted To Id) - IVPUSH 120 mls/hr BID [facility]UEL Administration Melatonin 5 mg 06/15/17 22:00 06/16/17 21:27 Melatonin PO 5 mg HS MIGUEL Administration Metoprolol Tartrate 25 mg 06/15/17 22:00 06/16/17 21:25 Lopressor - PO 25 mg BID MIGUEL Administration Primidone 250 mg 06/16/17 10:00 06/16/17 14:18 Mysoline - PO 250 mg DAILY MIGUEL Administration Spironolactone 25 mg 06/16/17 10:00 06/16/17 11:41 Aldactone - PO 25 mg DAILY MIGUEL Administration Valsartan 40 mg 06/16/17 10:00 06/16/17 11:40 Diovan - PO 40 mg DAILY MIGUEL Administration ASSESSMENT/PLAN: 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 She presented to the ED from [facility] on 2016 with with cold symptoms for a few days. Patient reports fever, chills and weakness and productive cough. In the ER patient was noted to have a fever of 101.8F, WBC 21, respiratory rate of 22, BUN 22, UA with +3 leukocyte esterase, 526 WBC in urine and moderate yeast. Her blood and urine cultures were positive for Ecoli. Her admitting diagnosis is sepsis. ID: Severe Sepsis UTI, Bacteremia +blood cultures: ecoli +urine culture non lactating fermenting grub Remains febrile, tachycardic, WBC elevated but trending down Monitor BP in the setting of sepsis Monitor fever curve On Azactam 1gram as per ID (06/16> ) Cardiology: Hypertension CHF (combined systolic/diastolic heart failure) Atrial Fibrilation On Aldactone, Diovan, Lopressor, Lasix, Eliquis Monitor BP Monitor intake and output Neuro: Seizure history On no seizure meds Ativan PRN F.E.N. Fluids: tolerating PO Electrolyte: monitor Nutrition: low sodium Prophylaxis: GI: deferred DVT: On Eliquis BID Disposition: inpatient management. Visit type - Emergency Visit Emergency Visit: Yes ED Registration Date: 06/15/17 Care time: The patient presented to the Emergency Department on the above date and was hospitalized for further evaluation of their emergent condition. - New Patient This patient is new to me today: Yes Date on this admission: 06/17/17 - Critical Care Critical Care patient: No - Discharge Referral Referred to [facility] No
[2017-06-17] MEDS: METOPROLOL TARTRATE 50 MG TABLET (FP) PO SCH ×2 (10:49→21:38)
[2017-06-17] MEDS: FUROSEMIDE 40 MG TABLET (FP) PO SCH (10:50)
[2017-06-17] MEDS: SPIRONOLACTONE 25 MG TABLET (FP) PO SCH (10:50)
[2017-06-17] MEDS: DIGOXIN 0.125 MG TABLET (FP) PO SCH (10:50)
[2017-06-17] MEDS: APIXABAN 5 MG TABLET PO SCH ×2 (10:50→21:37)
[2017-06-17] MEDS: AZTREONAM 1 GRAM SYRINGE 1 GM/10 ML DISP.SYRIN IVPUSH SCH ×2 (10:51→21:38)
[2017-06-17] MEDS: DOCUSATE SODIUM 100 MG CAPSULE (FP) PO SCH ×2 (12:00→21:37)
--- NOTE | 2017-06-17 14:40 | EKG ---
Test Reason : Blood Pressure : / mmHG Vent. Rate : 086 BPM Atrial Rate : 066 BPM P-R Int : 000 ms QRS Dur : 102 ms QT Int : 362 ms P-R-T Axes : 000 006 014 degrees QTc Int : 433 ms ATRIAL FIBRILLATION NONSPECIFIC ST AND T WAVE ABNORMALITY ABNORMAL ECG NO PREVIOUS ECGS AVAILABLE Confirmed by EAN HAMMOND MD ([id number]) on 06/17/2017 2:40:02 PM Referred By: Confirmed By:EAN HAMMOND MD
--- NOTE | 2017-06-17 16:31 | PN ---
Progress Note, Physician Chief Complaint: Infectious Disease f/u: History of Present Illness: Pt states she feels better. Denies chills, pain. Still mildly weak. No specific complaints. - Current Medication List Current Medications: Active Medications Acetaminophen (Tylenol -) 1,000 mg PO Q6H PRN PRN Reason: PAIN Last Admin: 06/16/17 21:27 Dose: 1,000 mg Apixaban (Eliquis -) 5 mg PO BID [facility] Last Admin: 06/17/17 10:50 Dose: 5 mg Digoxin (Lanoxin -) 0.125 mg PO DAILY [facility] Last Admin: 06/17/17 10:50 Dose: 0.125 mg Docusate Sodium (Colace -) 100 mg PO BID [facility] Ergocalciferol (Drisdol -) 50,000 unit PO Q30D [facility] Furosemide (Lasix -) 40 mg PO DAILY [facility] Last Admin: 06/17/17 10:50 Dose: 40 mg Aztreonam (Azactam (Restricted To Id) -) 1 gm in 10 mls @ 120 mls/hr IVPUSH BID [facility] Last Admin: 06/17/17 10:51 Dose: 120 mls/hr Melatonin (Melatonin) 5 mg PO HS [facility] Last Admin: 06/16/17 21:27 Dose: 5 mg Metoprolol Tartrate (Lopressor -) 25 mg PO BID [facility] Last Admin: 06/17/17 10:49 Dose: 25 mg Primidone (Mysoline -) 250 mg PO DAILY [facility] Last Admin: 06/17/17 10:48 Dose: 250 mg Spironolactone (Aldactone -) 25 mg PO DAILY [facility] Last Admin: 06/17/17 10:50 Dose: 25 mg Valsartan (Diovan -) 40 mg PO DAILY [facility] Last Admin: 06/17/17 10:48 Dose: 40 mg - Objective Vital Signs: Vital Signs Temperature 99.9 F H 06/17/17 13:00 Pulse Rate 98 H 06/17/17 13:00 Respiratory Rate 20 06/17/17 13:00 Blood Pressure 132/64 06/17/17 13:00 O2 Sat by Pulse Oximetry (%) 97 06/17/17 09:00 Constitutional: Yes: No Distress, Calm HENT: Yes: Atraumatic Neck: Yes: Supple Cardiovascular: Yes: Tachycardia Respiratory: Yes: CTA Bilaterally Gastrointestinal: Yes: Normal Bowel Sounds, Soft Genitourinary: Yes: Other (mild Lt CVA discomfort with palpation) Edema: No Integumentary: Yes: WNL Psychiatric: Yes: Alert, Oriented Labs: CBC, BMP 06/17/17 05:35 06/17/17 05:35 Microbiology 06/15/17 13:30 Urine - Urine Clean Catch Urine Culture - Preliminary Non Lactose Fermenting Gnb 06/15/17 12:00 Blood - Peripheral Venous Blood Culture - Preliminary Escherichia Coli 06/15/17 12:00 Blood - Peripheral Venous Blood Culture - Final Escherichia Coli 06/15/17 12:00 Nasopharyngeal Swab Influenza Types A,B Antigen ([facility]) - Final 06/15/17 12:00 Nasopharyngeal Swab - Final - ....Imaging Ultrasound: Report Reviewed (Renal sonogram reveals b/l nephrolithiasis without obstruction. No hydronephrosis) Problem List - Problems (1) A-fib Code(s): I48.91 - UNSPECIFIED ATRIAL FIBRILLATION (2) CHF (congestive heart failure) Code(s): I50.9 - HEART FAILURE, UNSPECIFIED (3) Sepsis due to urinary tract infection Code(s): A41.9 - SEPSIS, UNSPECIFIED ORGANISM; N39.0 - URINARY TRACT INFECTION, SITE NOT SPECIFIED (4) E coli bacteremia Code(s): R78.81 - BACTEREMIA (5) Leukocytosis Code(s): D72.829 - ELEVATED WHITE BLOOD CELL COUNT, UNSPECIFIED (6) Fever Code(s): R50.9 - FEVER, UNSPECIFIED Assessment/Plan E. coli bacteremia/UTI/Sepsis -- wbc trending down, still with mild temp elevations -- continue Aztreonam -- continue monitor wbc , vitals -- f/u final blood and urine culture isolates/sensitivities continue monitor vitals
[2017-06-17] MEDS: MELATONIN 5 MG TABLETS PO SCH (21:38)
[2017-06-18 08:06] LABS: BASOPHIL 0.3 % (0-2.0); EOSINOPHIL 1.8 % (0-4.5); MCH 32.3 pg (25.7-33.7); MCHC 34.2 g/dl (32.0-36.0); MEAN CELL VOLUME 94.5 fl (80-96); PLATELET COUNT 194 K/MM3 (134-434); RDW 13.4 % (11.6-15.6); WHITE BLOOD COUNT 11.7 K/mm3 (4.0-10.0)
[2017-06-18 08:12] LABS: ALBUMIN 2.4 g/dl (3.4-5.0); ALK PHOS 86 U/L (45-117); ANION GAP 11 (8-16); BILIRUBIN,TOTAL 0.5 mg/dL (0.2-1.0); CALCIUM 8.3 mg/dL (8.5-10.1); CO2 27 mmol/L (21-32); CREATININE 0.8 mg/dL (0.55-1.02); GLUCOSE,RANDOM 131 mg/dL (74-106); SGOT/AST 20 U/L (15-37); SGPT/ALT 22 U/L (12-78); TOT PROT 6.1 g/dl (6.4-8.2)
[2017-06-18] MEDS ORDERED: PT OWN MED DRAWER 7, Y5N ONE ×2 (10:41→21:29)
[2017-06-18] MEDS: PRIMIDONE 250 MG TABLET PO SCH (11:12)
[2017-06-18] MEDS: FUROSEMIDE 40 MG TABLET (FP) PO SCH (11:12)
[2017-06-18] MEDS: DIGOXIN 0.125 MG TABLET (FP) PO SCH (11:12)
[2017-06-18] MEDS: APIXABAN 5 MG TABLET PO SCH ×2 (11:12→22:05)
[2017-06-18] MEDS: DOCUSATE SODIUM 100 MG CAPSULE (FP) PO SCH ×2 (11:12→22:04)
[2017-06-18] MEDS: VALSARTAN 40 MG TABLET (FP) PO SCH (11:12)
[2017-06-18] MEDS: SPIRONOLACTONE 25 MG TABLET (FP) PO SCH (11:12)
[2017-06-18] MEDS: METOPROLOL TARTRATE 50 MG TABLET (FP) PO SCH ×2 (11:13→22:04)
[2017-06-18] MEDS: AZTREONAM 1 GRAM SYRINGE 1 GM/10 ML DISP.SYRIN IVPUSH SCH ×2 (11:13→22:04)
--- NOTE | 2017-06-18 14:47 | PN ---
Physical Exam: SUBJECTIVE: Patient seen and examined. She feels weak, but she would like to sit up and have lunch today. Marched with PT this AM OBJECTIVE: Vital Signs Period Temp Pulse Resp BP Sys/Modi Pulse Ox Last 24 Hr 98.8 F-99.4 F 78-97 20-20 112-151/56-67 98-98 PE Neuro: alert, awake, cn 2-12intact Pulm: bi basilar crackles CV: s1 s2 irregular rhythm Abd: s nt nd + bs Ext: Warm, no le edema Laboratory Results - last 24 hr 06/18/17 06/18/17 05:35 05:35 WBC 11.7 H RBC 3.21 L Hgb 10.4 L Hct 30.4 L MCV 94.5 MCH 32.3 MCHC 34.2 RDW 13.4 Plt Count 194 MPV 10.0 Neutrophils % 77.0 Lymphocytes % 8.8 D Monocytes % 12.1 H Eosinophils % 1.8 Basophils % 0.3 Sodium 130 L Potassium 3.8 Chloride 92 L Carbon Dioxide 27 Anion Gap 11 BUN 27 H Creatinine 0.8 Creat Clearance w eGFR > 60 Random Glucose 131 H Calcium 8.3 L Total Bilirubin 0.5 D AST 20 D ALT 22 Alkaline Phosphatase 86 Total Protein 6.1 L Albumin 2.4 L Active Medications Generic Name Dose Route Start Last Admin Trade Name Joseq PRN Reason Stop Dose Admin Acetaminophen 1,000 mg 06/15/17 15:53 06/16/17 21:27 Tylenol - PO 1,000 mg Q6H PRN Administration PAIN Apixaban 5 mg 06/15/17 22:00 06/18/17 11:12 Eliquis - PO 5 mg BID MIGUEL Administration Digoxin 0.125 mg 06/16/17 10:00 06/18/17 11:12 Lanoxin - PO 0.125 mg DAILY MIGUEL Administration Docusate Sodium 100 mg 06/17/17 11:00 06/18/17 11:12 Colace - PO 100 mg BID MIGUEL Administration Ergocalciferol 50,000 unit 06/23/17 15:30 Drisdol - PO Q30D MIGUEL Furosemide 40 mg 06/16/17 10:00 06/18/17 11:12 Lasix - PO 40 mg DAILY MIGUEL Administration Aztreonam 1 gm in 10 mls @ 120 mls/hr 06/16/17 22:00 06/18/17 11:13 Azactam (Restricted To Id) - IVPUSH 120 mls/hr BID MIGUEL Administration Melatonin 5 mg 06/15/17 22:00 06/17/17 21:38 Melatonin PO 5 mg HS MIGUEL Administration Metoprolol Tartrate 25 mg 06/15/17 22:00 06/18/17 11:13 Lopressor - PO 25 mg BID MIGUEL Administration Primidone 250 mg 06/16/17 10:00 06/18/17 11:12 Mysoline - PO 250 mg DAILY MIGUEL Administration Spironolactone 25 mg 06/16/17 10:00 06/18/17 11:12 Aldactone - PO 25 mg DAILY MIGUEL Administration Valsartan 40 mg 06/16/17 10:00 06/18/17 11:12 Diovan - PO 40 mg DAILY MIGUEL Administration Asessment: 87 year old female with PMHx CHF (combined systolic and diastolic), atrial fibrillation (on Eliquis), muscle weakness and seizures admitted from [facility] with fever, chills and weakness and productive cough. 1. Severe sepsis, E. coli bacteremia, and UTI - Afebrile, wbc down trending - Continue Aztreonam (06/16-) - ID seeing 2. Hyponatremia - Likely due to sepsis - No acute mental status changes - Hold lasix and aldactone for now 3. HTN - Controlled - Hold lasix, aldactone for hyponatremia - Continue diovan, lopressor 4. CHF (combined systolic/diastolic heart failure) - Hold Lasix, aldactone - Diovan, lopressor - Monitor resp status 5. Atrial Fib - Continue eliquis 6. DVT - On AC Visit type - Emergency Visit Emergency Visit: Yes ED Registration Date: 06/15/17 Care time: The patient presented to the Emergency Department on the above date and was hospitalized for further evaluation of their emergent condition. - New Patient This patient is new to me today: Yes Date on this admission: 06/18/17 - Critical Care Critical Care patient: No
[2017-06-18] MEDS: MELATONIN 5 MG TABLETS PO SCH (22:05)
[2017-06-18] MEDS: ACETAMINOPHEN 500 MG TABLET (FP) PO PRN (22:20)
[2017-06-19 07:25] LABS: BASOPHIL 0.5 % (0-2.0); EOSINOPHIL 2.3 % (0-4.5); MCH 32.2 pg (25.7-33.7); MCHC 34.1 g/dl (32.0-36.0); MEAN CELL VOLUME 94.3 fl (80-96); MEAN PLT VOLUME 9.8 fl (7.5-11.1); NEUTROPHILS 74.8 % (42.8-82.8); PLATELET COUNT 200 K/MM3 (134-434); RDW 13.5 % (11.6-15.6); WHITE BLOOD COUNT 11.2 K/mm3 (4.0-10.0)
[2017-06-19 07:58] LABS: ANION GAP 7 (8-16); CALCIUM 8.2 mg/dL (8.5-10.1); CO2 30 mmol/L (21-32); CREATININE 0.7 mg/dL (0.55-1.02); GLUCOSE,RANDOM 115 mg/dL (74-106)
[2017-06-19] MEDS ORDERED: PT OWN MED DRAWER 7, Y5N ONE ×2 (09:07→21:01)
[2017-06-19] MEDS: VALSARTAN 40 MG TABLET (FP) PO SCH (09:13)
[2017-06-19] MEDS: AZTREONAM 1 GRAM SYRINGE 1 GM/10 ML DISP.SYRIN IVPUSH SCH ×2 (09:13→21:08)
[2017-06-19] MEDS: APIXABAN 5 MG TABLET PO SCH ×2 (09:13→21:08)
[2017-06-19] MEDS: DOCUSATE SODIUM 100 MG CAPSULE (FP) PO SCH ×2 (09:13→21:08)
[2017-06-19] MEDS: METOPROLOL TARTRATE 50 MG TABLET (FP) PO SCH ×2 (09:13→21:08)
[2017-06-19] MEDS: DIGOXIN 0.125 MG TABLET (FP) PO SCH (09:14)
[2017-06-19] MEDS: PRIMIDONE 250 MG TABLET PO SCH (09:15)
--- NOTE | 2017-06-19 12:28 | PN ---
Physical Exam: SUBJECTIVE: Patient seen and examined. She feels weak, however will to get out of bed. Russell sob, chest pain, palpitations OBJECTIVE: Vital Signs Period Temp Pulse Resp BP Sys/Modi Pulse Ox Last 24 Hr 97.7 F-99.3 F 65-99 18-20 100-125/47-60 98-99 PE Neuro: alert, awake, cn 2-12intact Pulm: bi basilar crackles, no sob CV: s1 s2 irregular rhythm Abd: s, nt, nd + bs Ext: warm, no le edema Laboratory Results - last 24 hr 06/19/17 06/19/17 06:00 06:00 WBC 11.2 H RBC 3.32 L Hgb 10.7 Hct 31.3 L MCV 94.3 MCH 32.2 MCHC 34.1 RDW 13.5 Plt Count 200 MPV 9.8 Neutrophils % 74.8 Lymphocytes % 9.2 Monocytes % 13.2 H Eosinophils % 2.3 Basophils % 0.5 Sodium 133 L Potassium 3.8 Chloride 96 L Carbon Dioxide 30 Anion Gap 7 L BUN 27 H Creatinine 0.7 Random Glucose 115 H Calcium 8.2 L Active Medications Generic Name Dose Route Start Last Admin Trade Name Freq PRN Reason Stop Dose Admin Acetaminophen 1,000 mg 06/15/17 15:53 06/18/17 22:20 Tylenol - PO 1,000 mg Q6H PRN Administration PAIN Apixaban 5 mg 06/15/17 22:00 06/19/17 09:13 Eliquis - PO 5 mg BID MIGUEL Administration Digoxin 0.125 mg 06/16/17 10:00 06/19/17 09:14 Lanoxin - PO 0.125 mg DAILY MIGUEL Administration Docusate Sodium 100 mg 06/17/17 11:00 06/19/17 09:13 Colace - PO 100 mg BID MIGUEL Administration Ergocalciferol 50,000 unit 06/23/17 15:30 Drisdol - PO Q30D [facility]UEL Aztreonam 1 gm in 10 mls @ 120 mls/hr 06/16/17 22:00 06/19/17 09:13 Azactam (Restricted To Id) - IVPUSH 120 mls/hr BID [facility]UEL Administration Melatonin 5 mg 06/15/17 22:00 06/18/17 22:05 Melatonin PO 5 mg HS MIGUEL Administration Metoprolol Tartrate 25 mg 11/25/17 22:00 06/19/17 09:13 Lopressor - PO 25 mg BID MIGUEL Administration Primidone 250 mg 06/16/17 10:00 06/19/17 09:15 Mysoline - PO 250 mg DAILY MIGUEL Administration Valsartan 40 mg 06/16/17 10:00 06/19/17 09:13 Diovan - PO 40 mg DAILY MIGUEL Administration Assessment: 87 year old female with PMHx CHF (combined systolic and diastolic), atrial fibrillation (on Eliquis), muscle weakness and seizures admitted from [facility] with fever, chills and weakness and productive cough. 1. Severe sepsis, E. coli bacteremia, and UTI - WBC stable - Continue Aztreonam (06/16-) - Repeat blood cx for clearance - ID seeing 2. Hyponatremia - Improved today - Likely due to sepsis - No acute mental status changes - Continue to hold lasix and aldactone for now, dose not appear hypervolemic 3. HTN - Controlled - Hold lasix, aldactone for hyponatremia - Continue diovan, lopressor 4. CHF (combined systolic/diastolic heart failure) - Hold Lasix, aldactone - Diovan, lopressor - Monitor resp status 5. Atrial Fib - Continue eliquis 6. DVT - On AC 7. PPx - Daily PT, goal for OOB to chair today Visit type - Emergency Visit Emergency Visit: Yes ED Registration Date: 06/15/17 Care time: The patient presented to the Emergency Department on the above date and was hospitalized for further evaluation of their emergent condition. - New Patient This patient is new to me today: No - Critical Care Critical Care patient: No
--- NOTE | 2017-06-19 15:47 | PN ---
Progress Note, Physician Chief Complaint: Infectious Disease f/u: History of Present Illness: Pt states she feels much better. Had some physical therapy today. Denies fever, chills, abd discomfort, or dysuria. - Current Medication List Current Medications: Active Medications Acetaminophen (Tylenol -) 1,000 mg PO Q6H PRN PRN Reason: PAIN Last Admin: 06/18/17 22:20 Dose: 1,000 mg Apixaban (Eliquis -) 5 mg PO BID [facility] Last Admin: 06/19/17 09:13 Dose: 5 mg Digoxin (Lanoxin -) 0.125 mg PO DAILY [facility] Last Admin: 06/19/17 09:14 Dose: 0.125 mg Docusate Sodium (Colace -) 100 mg PO BID [facility] Last Admin: 06/19/17 09:13 Dose: 100 mg Ergocalciferol (Drisdol -) 50,000 unit PO Q30D [facility] Aztreonam (Azactam (Restricted To Id) -) 1 gm in 10 mls @ 120 mls/hr IVPUSH BID [facility] Last Admin: 06/19/17 09:13 Dose: 120 mls/hr Melatonin (Melatonin) 5 mg PO HS [facility] Last Admin: 06/18/17 22:05 Dose: 5 mg Metoprolol Tartrate (Lopressor -) 25 mg PO BID [facility] Last Admin: 06/19/17 09:13 Dose: 25 mg Primidone (Mysoline -) 250 mg PO DAILY [facility] Last Admin: 06/19/17 09:15 Dose: 250 mg Valsartan (Diovan -) 40 mg PO DAILY [facility] Last Admin: 06/19/17 09:13 Dose: 40 mg - Objective Vital Signs: Vital Signs Temperature 98.6 F 06/19/17 14:05 Pulse Rate 82 06/19/17 14:05 Respiratory Rate 18 06/19/17 14:05 Blood Pressure 101/48 06/19/17 14:05 O2 Sat by Pulse Oximetry (%) 99 06/19/17 09:00 Constitutional: Yes: No Distress, Calm Neck: Yes: Supple Cardiovascular: Yes: Regular Rate and Rhythm Respiratory: Yes: CTA Bilaterally Gastrointestinal: Yes: Normal Bowel Sounds, Soft Genitourinary: Yes: WNL Extremities: Yes: WNL Integumentary: Yes: WNL Neurological: Yes: Alert, Oriented Labs: CBC, BMP 06/19/17 06:00 06/19/17 06:00 Microbiology 06/15/17 13:30 Urine - Urine Clean Catch Urine Culture - Final Escherichia Coli 06/15/17 12:00 Blood - Peripheral Venous Blood Culture - Final Escherichia Coli 06/15/17 12:00 Blood - Peripheral Venous Blood Culture - Final Escherichia Coli 06/15/17 12:00 Nasopharyngeal Swab Influenza Types A,B Antigen ([facility]) - Final 06/15/17 12:00 Nasopharyngeal Swab - Final Problem List - Problems (1) A-fib Code(s): I48.91 - UNSPECIFIED ATRIAL FIBRILLATION (2) CHF (congestive heart failure) Code(s): I50.9 - HEART FAILURE, UNSPECIFIED (3) Sepsis due to urinary tract infection Code(s): A41.9 - SEPSIS, UNSPECIFIED ORGANISM; N39.0 - URINARY TRACT INFECTION, SITE NOT SPECIFIED (4) E coli bacteremia Code(s): R78.81 - BACTEREMIA (5) Leukocytosis Code(s): D72.829 - ELEVATED WHITE BLOOD CELL COUNT, UNSPECIFIED (6) Fever Code(s): R50.9 - FEVER, UNSPECIFIED Assessment/Plan E. coli UTI/Bacteremia/sepsis Multiple antibiotic allergies - clinically improving, stable - continue aztreonam for total 10 days - f/u with blood cultures sent
[2017-06-19] MEDS: MELATONIN 5 MG TABLETS PO SCH (21:08)
[2017-06-20 07:57] LABS: MCH 32.4 pg (25.7-33.7); MCHC 34.4 g/dl (32.0-36.0); MEAN CELL VOLUME 94.2 fl (80-96); MEAN PLT VOLUME 9.8 fl (7.5-11.1); PLATELET COUNT 222 K/MM3 (134-434); RDW 13.3 % (11.6-15.6); WHITE BLOOD COUNT 12.4 K/mm3 (4.0-10.0)
[2017-06-20 08:32] LABS: ANION GAP 9 (8-16); CALCIUM 8.6 mg/dL (8.5-10.1); CO2 29 mmol/L (21-32); CREATININE 0.6 mg/dL (0.55-1.02); GLUCOSE,RANDOM 137 mg/dL (74-106)
[2017-06-20] MEDS ORDERED: PT OWN MED DRAWER 7, Y5N ONE ×2 (09:06→21:02)
[2017-06-20] MEDS: DOCUSATE SODIUM 100 MG CAPSULE (FP) PO SCH ×2 (09:11→21:09)
[2017-06-20] MEDS: METOPROLOL TARTRATE 50 MG TABLET (FP) PO SCH ×2 (09:11→21:09)
[2017-06-20] MEDS: VALSARTAN 40 MG TABLET (FP) PO SCH (09:11)
[2017-06-20] MEDS: DIGOXIN 0.125 MG TABLET (FP) PO SCH (09:11)
[2017-06-20] MEDS: AZTREONAM 1 GRAM SYRINGE 1 GM/10 ML DISP.SYRIN IVPUSH SCH ×2 (09:13→21:09)
[2017-06-20] MEDS: APIXABAN 5 MG TABLET PO SCH ×2 (09:13→21:09)
[2017-06-20] MEDS: PRIMIDONE 250 MG TABLET PO SCH (09:14)
--- NOTE | 2017-06-20 10:25 | PN ---
Physical Exam: SUBJECTIVE: Patient seen and examined. She appears more awake today, she feels more awake and less weak. OOb to chair with meals yesterday. OBJECTIVE: Vital Signs Period Temp Pulse Resp BP Sys/Modi Pulse Ox Last 24 Hr 98.1 F-99.1 F 79-90 18-20 101-138/44-61 96-96 PE Gen: Smiling Neuro: alert, awake, cn 2-12intact Pulm: bi basilar crackles CV: s1 s2 irregular rhythm Abd: s, nt, nd + bs Ext: warm, no le edema Laboratory Results - last 24 hr 06/20/17 06/20/17 06:30 06:30 WBC 12.4 H RBC 3.20 L Hgb 10.4 L Hct 30.1 L MCV 94.2 MCH 32.4 MCHC 34.4 RDW 13.3 Plt Count 222 MPV 9.8 Sodium 133 L Potassium 4.0 Chloride 95 L Carbon Dioxide 29 Anion Gap 9 BUN 23 H Creatinine 0.6 Random Glucose 137 H Calcium 8.6 Active Medications Generic Name Dose Route Start Last Admin Trade Name Freq PRN Reason Stop Dose Admin Acetaminophen 1,000 mg 06/15/17 15:53 06/18/17 22:20 Tylenol - PO 1,000 mg Q6H PRN Administration PAIN Apixaban 5 mg 06/15/17 22:00 06/20/17 09:13 Eliquis - PO 5 mg BID MIGUEL Administration Digoxin 0.125 mg 06/16/17 10:00 06/20/17 09:11 Lanoxin - PO 0.125 mg DAILY MIGUEL Administration Docusate Sodium 100 mg 06/17/17 11:00 06/20/17 09:11 Colace - PO 100 mg BID MIGUEL Administration Ergocalciferol 50,000 unit 06/23/17 15:30 Drisdol - PO Q30D MIGUEL Aztreonam 1 gm in 10 mls @ 120 mls/hr 06/16/17 22:00 06/20/17 09:13 Azactam (Restricted To Id) - IVPUSH 120 mls/hr BID MIGUEL Administration Melatonin 5 mg 06/15/17 22:00 06/19/17 21:08 Melatonin PO 5 mg HS MIGUEL Administration Metoprolol Tartrate 25 mg 06/15/17 22:00 06/20/17 09:11 Lopressor - PO 25 mg BID MIGUEL Administration Primidone 250 mg 06/16/17 10:00 06/20/17 09:14 Mysoline - PO 250 mg DAILY MIGUEL Administration Valsartan 40 mg 06/16/17 10:00 06/20/17 09:11 Diovan - PO 40 mg DAILY MIGUEL Administration Assessment: 87 year old female with PMHx CHF (combined systolic and diastolic), atrial fibrillation (on Eliquis), muscle weakness and seizures admitted from [facility] with fever, chills and weakness and productive cough. 1. Severe sepsis, E. coli bacteremia, and UTI - WBC stable - Continue Aztreonam day 4/10 days (06/16-) - Repeat BC NGTD 2. Hyponatremia - Stable - Likely due to sepsis - No acute mental status changes - Continue to hold lasix and aldactone for now, volume status stable today 3. HTN - Controlled - Hold lasix, aldactone for hyponatremia - Continue diovan, lopressor 4. CHF (combined systolic/diastolic heart failure) - Hold Lasix, aldactone - Diovan, lopressor - Incentive spirometry 5. Atrial Fib - Continue eliquis 6. DVT - On AC 7. PPx - Daily PT, OOB to chair for feedings Visit type - Emergency Visit Emergency Visit: Yes ED Registration Date: 06/15/17 Care time: The patient presented to the Emergency Department on the above date and was hospitalized for further evaluation of their emergent condition. - New Patient This patient is new to me today: No - Critical Care Critical Care patient: No
--- NOTE | 2017-06-20 15:24 | PN ---
Progress Note, Physician Chief Complaint: Infectious Disease f/u: History of Present Illness: Pt doing well. Afebrile, without complaints. Was able to walk to the bathroom today. - Current Medication List Current Medications: Active Medications Acetaminophen (Tylenol -) 1,000 mg PO Q6H PRN PRN Reason: PAIN Last Admin: 06/18/17 22:20 Dose: 1,000 mg Apixaban (Eliquis -) 5 mg PO BID [facility] Last Admin: 06/20/17 09:13 Dose: 5 mg Digoxin (Lanoxin -) 0.125 mg PO DAILY [facility] Last Admin: 06/20/17 09:11 Dose: 0.125 mg Docusate Sodium (Colace -) 100 mg PO BID [facility] Last Admin: 06/20/17 09:11 Dose: 100 mg Ergocalciferol (Drisdol -) 50,000 unit PO Q30D [facility] Aztreonam (Azactam (Restricted To Id) -) 1 gm in 10 mls @ 120 mls/hr IVPUSH BID [facility] Last Admin: 06/20/17 09:13 Dose: 120 mls/hr Melatonin (Melatonin) 5 mg PO HS [facility] Last Admin: 06/19/17 21:08 Dose: 5 mg Metoprolol Tartrate (Lopressor -) 25 mg PO BID [facility] Last Admin: 06/20/17 09:11 Dose: 25 mg Primidone (Mysoline -) 250 mg PO DAILY [facility] Last Admin: 06/20/17 09:14 Dose: 250 mg Valsartan (Diovan -) 40 mg PO DAILY [facility] Last Admin: 06/20/17 09:11 Dose: 40 mg - Objective Vital Signs: Vital Signs Temperature 98.4 F 06/20/17 08:45 Pulse Rate 89 06/20/17 09:11 Respiratory Rate 20 06/20/17 08:45 Blood Pressure 138/57 06/20/17 08:45 O2 Sat by Pulse Oximetry (%) 96 06/20/17 08:45 Constitutional: Yes: No Distress, Calm HENT: Yes: Atraumatic Neck: Yes: Supple Cardiovascular: Yes: Regular Rate and Rhythm Respiratory: Yes: CTA Bilaterally Gastrointestinal: Yes: Normal Bowel Sounds, Soft Genitourinary: Yes: WNL Extremities: Yes: WNL Edema: No Integumentary: Yes: WNL Labs: CBC, BMP 06/20/17 06:30 06/20/17 06:30 Problem List - Problems (1) A-fib Code(s): I48.91 - UNSPECIFIED ATRIAL FIBRILLATION (2) CHF (congestive heart failure) Code(s): I50.9 - HEART FAILURE, UNSPECIFIED (3) Sepsis due to urinary tract infection Code(s): A41.9 - SEPSIS, UNSPECIFIED ORGANISM; N39.0 - URINARY TRACT INFECTION, SITE NOT SPECIFIED (4) E coli bacteremia Code(s): R78.81 - BACTEREMIA (5) Leukocytosis Code(s): D72.829 - ELEVATED WHITE BLOOD CELL COUNT, UNSPECIFIED (6) Fever Code(s): R50.9 - FEVER, UNSPECIFIED Assessment/Plan 87 y.o. female admitted with Sepsis due to E. coli UTI/Bacteremia and multiple antibiotic allergies clinically improving, afebrile improved leukocytosis, minimally elevated bacteremia resolved -- repeat cbc in a.m -- continue Aztreonam
[2017-06-20] MEDS ORDERED: PICC LINE 8 ML FLUSH PROTOCOL IVPUSH PRN (17:17)
[2017-06-20] MEDS: MELATONIN 5 MG TABLETS PO SCH (22:53)
[2017-06-21 07:11] LABS: BASOPHIL 0.7 % (0-2.0); EOSINOPHIL 1.8 % (0-4.5); MCH 32.4 pg (25.7-33.7); MCHC 34.2 g/dl (32.0-36.0); MEAN CELL VOLUME 94.9 fl (80-96); MEAN PLT VOLUME 9.4 fl (7.5-11.1); NEUTROPHILS 74.9 % (42.8-82.8); PLATELET COUNT 260 K/MM3 (134-434); RDW 13.3 % (11.6-15.6)
[2017-06-21] MEDS: METOPROLOL TARTRATE 50 MG TABLET (FP) PO SCH (08:59)
[2017-06-21] MEDS: DOCUSATE SODIUM 100 MG CAPSULE (FP) PO SCH (08:59)
[2017-06-21] MEDS: DIGOXIN 0.125 MG TABLET (FP) PO SCH (08:59)
[2017-06-21] MEDS: VALSARTAN 40 MG TABLET (FP) PO SCH (08:59)
[2017-06-21] MEDS: APIXABAN 5 MG TABLET PO SCH (08:59)
[2017-06-21] MEDS: PRIMIDONE 250 MG TABLET PO SCH (09:04)
[2017-06-21] MEDS: AZTREONAM 1 GRAM SYRINGE 1 GM/10 ML DISP.SYRIN IVPUSH SCH (09:04)
--- NOTE | 2017-06-21 14:04 | DS ---
Physical Exam: SUBJECTIVE: Patient seen and examined after PICC line insertion. No acute complaints. OBJECTIVE: Vital Signs Period Temp Pulse Resp BP Sys/Modi Pulse Ox Last 24 Hr 98 F-99.0 F 84-104 16-20 112-144/52-62 93-93 PE Neuro: alert, awake, cn 2-12intact Pulm: bi basilar crackles CV: s1 s2 irregular rhythm regular rate Abd: s, nt, nd + bs Ext: warm, no le edema, RUE picc Laboratory Results - last 24 hr 06/21/17 07:00 WBC 11.0 H RBC 3.22 L Hgb 10.4 L Hct 30.5 L MCV 94.9 MCH 32.4 MCHC 34.2 RDW 13.3 Plt Count 260 MPV 9.4 Neutrophils % 74.9 Lymphocytes % 12.0 D Monocytes % 10.6 H Eosinophils % 1.8 Basophils % 0.7 HOSPITAL COURSE: Date of Admission:06/15/17 Date of Discharge: 06/21/17 Minutes to complete discharge: 37 Discharge Summary Reason For Visit: SEPSIS UTI NONCARDIAC Current Active Problems A-fib (Acute) CHF (congestive heart failure) (Acute) DVT prophylaxis (Acute) E coli bacteremia (Acute) Fever (Acute) Leukocytosis (Acute) Sepsis due to urinary tract infection (Acute) UTI (urinary tract infection) (Acute) Hospital Course: Initial Hospital Course: Briefly, 87 year old female with a past medical history of CHF, Afib (on Eliquis ), Muscle Weakness, seizures presented from the ED from [facility] with cold symptoms x 3 days. Patient reported having fever, chills, and "feeling foggy." Patient reported having fatigue and a productive cough with yellow phlegm. Subsequent Hospital Course/Progress Note/DC summary: Assessment: 87 year old female with PMHx CHF (combined systolic and diastolic), atrial fibrillation (on Eliquis), muscle weakness and seizures admitted from [facility] with fever, chills and weakness and productive cough. 1. Severe sepsis, E. coli bacteremia, and UTI - WBC down trended - PICC line inserted 06/21 - Continue Aztreonam for 5 additional days, 10 total - Repeat BC NGTD 2. Hyponatremia - Stable - Likely due to sepsis - No acute mental status changes - Resume lasix as directed - Resume aldactone 3. HTN - Controlled - Continue diovan, lopressor, lasix, aldactone 4. Chronic CHF (combined systolic/diastolic heart failure) - Not in exacerbation - Resume meds as above 5. Atrial Fib, rate controlled - Continue eliquis Dispo: - Transfer to [facility], to complete 5 more days of abx - Resume meds as above, continue daily PT Condition: Stable - Instructions Diet, Activity, Other Instructions: Please return to the ED for any new, persistent, or worsening symptoms. Follow up with your PCP in 1 week Resume home medications as listed on discharge list Complete 5 more days of antibiotics through PICC line Referrals: Itz Dempsey MD [Primary Care Provider] - Disposition: LONGTERM FACILITY - Home Medications Comprehensive Discharge Medication List: Ambulatory Orders Apixaban [Eliquis] 5 mg PO BID 04/23/16 Cholecalciferol (Vitamin D3) [D3-50] 50,000 unit PO MONTHLY 04/23/16 Digoxin [Lanoxin -] 0.125 mg PO DAILY 04/23/16 Metoprolol Tartrate 25 mg PO BID 04/23/16 Primidone [Mysoline] 250 mg PO DAILY 04/23/16 Spironolactone 25 mg PO DAILY 04/23/16 Valsartan 40 mg PO DAILY 04/23/16 Acetaminophen [Tylenol Extra Strength] 1,000 mg PO QID PRN 06/15/17 Furosemide [Lasix] 40 mg PO ASDIR 06/15/17 Melatonin 5 mg PO HS 06/15/17 Nystatin/Triamcin [Nystatin-Triamcinolone Cream] 0 gm TP TID PRN 06/15/17 Aztreonam 1 Gram Syringe [Azactam (Restricted To Id) -] 1 gm IVPUSH BID #10 disp.syrin 06/21/17 Picc Line Flush [Picc Line Flush -] 8 ml IVPUSH PRN PRN ml 06/21/17 This patient is new to me today: No Emergency Visit: Yes ED Registration Date: 06/15/17 Care time: The patient presented to the Emergency Department on the above date and was hospitalized for further evaluation of their emergent condition. Critical Care patient: No - Discharge Referral Referred to [facility] Med P.C.: No
[2017-06-21 14:10] VITALS: BP 123/56; PULSE 76; TEMP 98.1
--- NOTE | 2017-06-21 15:08 | PN ---
Progress Note, Physician History of Present Illness: Pt feeling well. Denies fever, chills, dysuria. Has no specific complaints. - Current Medication List Current Medications: Active Medications Acetaminophen (Tylenol -) 1,000 mg PO Q6H PRN PRN Reason: PAIN Last Admin: 06/18/17 22:20 Dose: 1,000 mg Apixaban (Eliquis -) 5 mg PO BID [facility] Last Admin: 06/21/17 08:59 Dose: 5 mg Digoxin (Lanoxin -) 0.125 mg PO DAILY [facility] Last Admin: 06/21/17 08:59 Dose: 0.125 mg Docusate Sodium (Colace -) 100 mg PO BID [facility] Last Admin: 06/21/17 08:59 Dose: 100 mg Ergocalciferol (Drisdol -) 50,000 unit PO Q30D [facility] IV Flush (Picc Line Flush) 8 ml IVPUSH PRN PRN PRN Reason: Protocol Aztreonam (Azactam (Restricted To Id) -) 1 gm in 10 mls @ 120 mls/hr IVPUSH BID [facility] Last Admin: 06/21/17 09:04 Dose: 120 mls/hr Melatonin (Melatonin) 5 mg PO HS [facility] Last Admin: 06/20/17 22:53 Dose: 5 mg Metoprolol Tartrate (Lopressor -) 25 mg PO BID [facility] Last Admin: 06/21/17 08:59 Dose: 25 mg Primidone (Mysoline -) 250 mg PO DAILY [facility] Last Admin: 06/21/17 09:04 Dose: 250 mg Valsartan (Diovan -) 40 mg PO DAILY [facility] Last Admin: 06/21/17 08:59 Dose: 40 mg - Objective Vital Signs: Vital Signs Temperature 98.1 F 06/21/17 14:08 Pulse Rate 76 06/21/17 14:08 Respiratory Rate 20 06/21/17 14:08 Blood Pressure 123/56 06/21/17 14:08 O2 Sat by Pulse Oximetry (%) 93 L 06/21/17 10:00 Constitutional: Yes: No Distress, Calm Cardiovascular: Yes: Regular Rate and Rhythm Respiratory: Yes: CTA Bilaterally Gastrointestinal: Yes: Normal Bowel Sounds, Soft Genitourinary: Yes: WNL Extremities: Yes: Other (RUE PICC) Neurological: Yes: Alert, Oriented Labs: CBC, BMP 06/21/17 07:00 06/20/17 06:30 Problem List - Problems (1) A-fib Code(s): I48.91 - UNSPECIFIED ATRIAL FIBRILLATION (2) CHF (congestive heart failure) Code(s): I50.9 - HEART FAILURE, UNSPECIFIED (3) Sepsis due to urinary tract infection Code(s): A41.9 - SEPSIS, UNSPECIFIED ORGANISM; N39.0 - URINARY TRACT INFECTION, SITE NOT SPECIFIED (4) E coli bacteremia Code(s): R78.81 - BACTEREMIA (5) Leukocytosis Code(s): D72.829 - ELEVATED WHITE BLOOD CELL COUNT, UNSPECIFIED (6) Fever Code(s): R50.9 - FEVER, UNSPECIFIED Assessment/Plan 87 y.o. female admitted with Sepsis due to E. coli UTI/Bacteremia and multiple antibiotic allergies - clinically improved - for d/c today to complete course of antibiotics
[2017-06-23] MEDS ORDERED: ERGOCALCIFEROL (VITAMIN D2) 50,000 UNIT CAPSULE (FP) PO SCH (15:30)
== END 2017-06-21 18:15 | DRG 872 ==
LOC: JER 10:52 → JERBED 14:37 → J4S 19:25
PROVIDERS: ADMIT Hospitalist; ATTEND Nurse Practitioner Acute Care
PROC: 02HV33Z Insertion of Infusion Device into Superior Vena Cava, Percutaneous Approach (ICD-10-PCS; principal; 2017-06-21)
DX: A41.9 Sepsis, unspecified organism (principal); N39.0 Urinary tract infection, site not specified; E87.1 Hypo-osmolality and hyponatremia; I50.42 Chronic combined systolic (congestive) and diastolic (congestive) heart failure; B96.20 Unspecified Escherichia coli [E. coli] as the cause of diseases classified elsewhere; I48.91 Unspecified atrial fibrillation; D72.829 Elevated white blood cell count, unspecified; R50.9 Fever, unspecified; I11.0 Hypertensive heart disease with heart failure; R65.20 Severe sepsis without septic shock
CPT/HCPCS: 36415; 36569; 71010-TC; 76775-TC; 77001-TC; 80048; 80053; 80162; 81003; 81015; 83605; 83735; 84100; 85025; 85027; 87040; 87086; 87186; 87804; 93005; 93010; 94010; 97116-GP; 97161-GP; 99284-25; C1751